=== PATIENT | female | born 2000 | race Caucasian/White ===

== ENCOUNTER 2023-02-11 00:21 | Inpatient (IN) | payer OTHER ==
[~2023-02-11] VITALS: Ht 165.1 cm; Wt 78.7 kg
[2023-02-11] VITALS (8 sets, daily range): BP systolic 124–138; BP diastolic 77–90; O2SAT 98
[2023-02-11] MEDS ORDERED: TRANEXAMIC ACID INJection 1,000 MG in NS 100 ML IV PRN (03:35)
[2023-02-11] MEDS ORDERED: LR 1,000 ML IV SCH ×2 (03:35→07:10)
[2023-02-11] MEDS ORDERED: LIDOCAINE 1% MDV 20ML VIAL INFIL PRN (03:35)
[2023-02-11] MEDS ORDERED: OXYTOCIN DRIP 30 UNITS in IV 1 EA IV PRN ×4 (03:35)
[2023-02-11] MEDS ORDERED: METHYLERGONOVINE MALEATE 0.2MG/ML 1ML VIAL IM PRN ×2 (03:35→07:10)
[2023-02-11 03:38] LABS: HEMATOCRIT 39.9 % (36.0-47.0); HEMOGLOBIN 13.8 g/dl (12.0-15.5); MEAN CORPUSCULAR HEMOGLOBIN 29.2 pg (27.0-33.0); MEAN CORPUSCULAR HGB CONC 34.6 g/dl (32.0-36.5); MEAN CORPUSCULAR VOLUME 84.5 fl (80.0-96.0); PLATELET COUNT, AUTOMATED 333 10^3/uL (150-450); RED BLOOD COUNT 4.72 10^6/uL (4.00-5.40); WHITE BLOOD COUNT 12.5 10^3/uL (4.0-10.0)
[2023-02-11] MEDS ORDERED: LR 500 ML IV PRN (04:15)
[2023-02-11] MEDS ORDERED: ePHEDrine SULFATE 25 MG/5 ML(5MG/ML) SYRINGE IVP PRN (04:15)
[2023-02-11] MEDS ORDERED: NALOXONE INJ 0.4MG/1ML VIAL IV PRN (04:15)
[2023-02-11] MEDS ORDERED: FENTANYL/ROPIVACAINE/NACL BAG 100 ML EPIDURAL SCH (04:15)
[2023-02-11] MEDS ORDERED: ONDANSETRON 4MG 2ML VIAL IV PRN ×2 (04:15→07:10)
[2023-02-11] MEDS ORDERED: EPIDURAL/PCA KEYS XX PRN (04:15)
[2023-02-11] MEDS ORDERED: diphenhydrAMINE 50MG/ML VIAL IV PRN (04:15)
[2023-02-11 07:01] LABS: CORD GAS ABE V -6.3; CORD GAS HCO3 V 21.4 MMOL/L; CORD GAS O2 SAT V 73.8 %; CORD GAS PCO2 V 50.2 mmHg; CORD GAS PH V 7.247 UNITS; CORD GAS PO2 V 35.5 mmHg; CORD GAS SBC V 18.8 MMOL/L; CORD GAS TCO2 V 22.9 MMOL/L
[2023-02-11 07:02] LABS: CORD GAS HCO3 A 23.3 MMOL/L; CORD GAS O2 SAT A 57.8 %; CORD GAS PCO2 A 60.4 mmHg; CORD GAS PH A 7.204 UNITS; CORD GAS PO2 A 27.5 mmHg; CORD GAS SBC A 18.6 MMOL/L; CORD GAS TCO2 A 25.1 MMOL/L
[2023-02-11] MEDS ORDERED: DOCUSATE SODIUM 100MG CAPSULE PO PRN (07:10)
[2023-02-11] MEDS ORDERED: METOCLOPRAMIDE INJ 10MG/2ML VIAL IV PRN (07:10)
[2023-02-11] MEDS ORDERED: DIBUCAINE 1% OINTMENT 30GM TOP PRN (07:10)
[2023-02-11] MEDS ORDERED: RHOGAM 300MCG (1500IU) INJ IM SCH (07:10)
[2023-02-11] MEDS ORDERED: OXYTOCIN DRIP 30 UNITS in IV 1 EA IV SCH (07:10)
[2023-02-11] MEDS ORDERED: OXYTOCIN 30UNITS IN 0.9% NaCl 500ML IV BAG As Ordered ONE (07:15)
[2023-02-11] MEDS: ACETAMINOPHEN 500 MG TAB PO SCH ×3 (08:00→20:06)
[2023-02-11] MEDS: IBUPROFEN 800 MG TAB PO SCH ×2 (08:00→16:56)
[2023-02-11] MEDS ORDERED: SLF 3 ML SYR IV PRN (08:45)
[2023-02-11] MEDS ORDERED: PRENATAL VITAMINS CHEWABLE TABLET PO SCH (09:00)
[2023-02-11] MEDS: PRENATAL VITAMINS CHEWABLE TABLET PO SCH (09:08)
[2023-02-11] MEDS: SLF 3 ML SYR IV SCH ×2 (15:46→22:00)
[2023-02-12] MEDS: IBUPROFEN 800 MG TAB PO SCH ×3 (00:55→16:00)
[2023-02-12] MEDS: ACETAMINOPHEN 500 MG TAB PO SCH ×4 (01:33→21:16)
[2023-02-12 06:00] VITALS: BP 118/59; O2SAT 96
[2023-02-12] MEDS: SLF 3 ML SYR IV SCH (06:00)
[2023-02-12 06:38] LABS: HEMATOCRIT 34.3 % (36.0-47.0); MEAN CORPUSCULAR HEMOGLOBIN 28.9 pg (27.0-33.0); MEAN CORPUSCULAR HGB CONC 33.2 g/dl (32.0-36.5); MEAN CORPUSCULAR VOLUME 87.1 fl (80.0-96.0); PLATELET COUNT, AUTOMATED 232 10^3/uL (150-450); RED BLOOD COUNT 3.94 10^6/uL (4.00-5.40); WHITE BLOOD COUNT 12.1 10^3/uL (4.0-10.0)
[2023-02-12 06:42] LABS: HEMOGLOBIN 11.4 g/dl (12.0-15.5)
[2023-02-12] MEDS: PRENATAL VITAMINS CHEWABLE TABLET PO SCH (08:30)
[2023-02-12] MEDS ORDERED: HOME MED LIST COMPLETE! XX SCH (15:10)
[2023-02-12 18:00] VITALS: BP 121/78; O2SAT 99
[2023-02-13] MEDS: IBUPROFEN 800 MG TAB PO SCH ×2 (00:42→08:04)
[2023-02-13] MEDS: ACETAMINOPHEN 500 MG TAB PO SCH ×2 (01:59→08:04)
[2023-02-13 06:00] VITALS: BP 116/69; O2SAT 98
[2023-02-13] MEDS: PRENATAL VITAMINS CHEWABLE TABLET PO SCH (08:04)
[2023-02-13] MEDS ORDERED: MEASLES,MUMPS,RUBELLA VACCINE INJ (MMR-II) SC.IMMUN ONE (09:00)
== END 2023-02-13 14:20 | disposition home or self-care (01) | DRG 807 ==
LOC: M LDO 00:21 → M LDI 03:04 → M OBS 09:25
PROVIDERS: ADMIT Obstetrics & Gynecology; ATTEND Obstetrics & Gynecology
PROC: 10E0XZZ Delivery of Products of Conception, External Approach (ICD-10-PCS; principal; 2023-02-11)
DX: O70.0 First degree perineal laceration during delivery (principal); Z37.0 Single live birth; Z3A.39 39 weeks gestation of pregnancy

== ENCOUNTER 2024-09-08 16:27 | Emergency (ER) | payer OTHER ==
[~2024-09-08] VITALS: Ht 165.1 cm; Wt 78.2 kg
[2024-09-08] MEDS ORDERED: SYNT75TA (16:41)
[2024-09-08 20:00] VITALS: BP 124/71; TEMP 97.2; O2SAT 100
== END 2024-09-08 20:17 | disposition left against medical advice (07) ==
LOC: M ED 16:27
DX: Z53.21 Procedure and treatment not carried out due to patient leaving prior to being seen by health care provider (principal)

== ENCOUNTER → 2025-03-02 | Outpatient (REF) | payer OTHER ==
[~2025-03-02] MED LIST: SYNT75TA
== END ==
LOC: M PLALAB 08:56
PROVIDERS: ATTEND Nurse Practitioner Family
DX: Z34.80 Encounter for supervision of other normal pregnancy, unspecified trimester (principal); Z53.9 Procedure and treatment not carried out, unspecified reason

== ENCOUNTER → 2025-04-13 | Outpatient (CLI) | payer OTHER ==
[2025-04-13 14:33] LABS: HIV 1&2 SCREEN NEGATIVE (NEGATIVE)
[2025-04-13 14:41] LABS: HEPATITIS C VIRUS ABY INDEX 0.03 INDEX (<0.8)
[2025-04-13 15:12] LABS: Trichomonas vaginalis (AMP) NOT DETECTED (NEGATIVE)
[2025-04-13 15:37] LABS: GC DNA AMPLIFICATION NEGATIVE (NEGATIVE)
== END ==
LOC: M PLALAB 09:42
PROVIDERS: ATTEND Nurse Practitioner Family
DX: Z34.80 Encounter for supervision of other normal pregnancy, unspecified trimester (principal)